=== PATIENT | female | born 1990 | race Caucasian/White ===

== ENCOUNTER 2016-09-15 08:13 | Emergency (ER) | payer OTHER ==
[~2016-09-15] VITALS: Ht 170.2 cm; Wt 73.1 kg
[2016-09-15 11:45] VITALS: BP 106/66
== END 2016-09-15 11:45 | disposition home or self-care (01) ==
LOC: ED 08:13
DX: G43.909 Migraine, unspecified, not intractable, without status migrainosus (principal); A08.39 Other viral enteritis
CPT/HCPCS: J0780; J1885

== ENCOUNTER 2018-03-12 13:59 | Emergency (ER) | payer SELFPAY ==
[~2018-03-12] VITALS: Ht 170.2 cm; Wt 73.9 kg
[2018-03-12 14:05] VITALS: Ht 170.2 cm; Wt 73.9 kg
[2018-03-12 15:23] LABS: BASOPHIL % 1.4 % (0-2); PLATELET COUNT 350 x10^3mcL (130-400); RED CELL DISTRIBUTION WIDTH 13.9 % (11.5-14.5)
[2018-03-12 17:22] VITALS: BP 100/70
== END 2018-03-12 17:22 | disposition home or self-care (01) ==
LOC: ED 13:59
PROVIDERS: Emergency Medicine
DX: N94.6 Dysmenorrhea, unspecified (principal); E03.9 Hypothyroidism, unspecified; G43.909 Migraine, unspecified, not intractable, without status migrainosus
CPT/HCPCS: 36415; J1885